=== PATIENT | female | born 1960 | race African-American/Black ===

== ENCOUNTER 2021-01-25 18:17 | Emergency (ER) | payer MEDICAID ==
[~2021-01-25] VITALS: Ht 160 cm; Wt 120.0 kg
[~2021-01-25 18:17] MED LIST: ASPI-1497 PO; LEVO500T2 PO; LISI40TA13 PO; NIFE60TA35 PO; TEMA15CA5 PO
[2021-01-25] MEDS ORDERED: MAGNESIUM CITRATE 300ML SOLUTION PO ONE (23:45)
[2021-01-25] MEDS ORDERED: MINERAL OIL ENEMA 133ML PR ONE (23:45)
[2021-01-26 03:30] VITALS: BP 138/84
== END 2021-01-26 04:08 | disposition home or self-care (01) ==
LOC: ER 18:17
DX: K59.00 Constipation, unspecified (principal); I10 Essential (primary) hypertension; M19.90 Unspecified osteoarthritis, unspecified site; J45.909 Unspecified asthma, uncomplicated; Z90.49 Acquired absence of other specified parts of digestive tract; Z79.82 Long term (current) use of aspirin
CPT/HCPCS: 99282